=== PATIENT | male | born 1965 | race Caucasian/White ===

== ENCOUNTER 2020-12-24 08:08 | Observation (INO) | payer OTHER ==
[2020-12-24 09:32] LABS: Basophils % (A) 0 %; Eosinophils # (A) 0.1 k/uL (0-0.7); Eosinophils % (A) 1 %; HCT 47.5 % (39.0-53.0); HGB 16.4 gm/dL (13.0-17.5); Lymphocytes # (A) 1.4 k/uL (1.0-4.8); Lymphocytes % (A) 15 %; MCH 30.8 pg (25.0-35.0); MCHC 34.6 g/dL (31.0-37.0); MCV 89.1 fL (80.0-100.0); Mean Platelet Volume 7.2; Monocytes # (A) 0.6 k/uL (0-1.0); Monocytes % (A) 7 %; Neutrophils # (A) 6.8 k/uL (1.3-7.7); Neutrophils % (A) 75 %; Platelet Count 284 k/uL (150-450); RBC 5.33 m/uL (4.30-5.90); RDW 13.4 % (11.5-15.5); WBC 9.1 k/uL (3.8-10.6)
[2020-12-24 09:56] LABS: ALT 31 U/L (4-49); AST 28 U/L (17-59); African American GFR (CKD) >90 (>60 ml/min/1.73 sqM); Albumin 4.2 g/dL (3.5-5.0); Alkaline Phosphatase 87 U/L (38-126); Anion Gap 8 mmol/L; Blood Urea Nitrogen 15 mg/dL (9-20); Calcium 9.8 mg/dL (8.4-10.2); Carbon Dioxide 24 mmol/L (22-30); Chloride 105 mmol/L (98-107); Glucose 82 mg/dL (74-99); Non-African American GFR(CKD) >90 (>60 ml/min/1.73 sqM); Potassium 4.1 mmol/L (3.5-5.1); Sodium 137 mmol/L (137-145); Total Bilirubin 0.7 mg/dL (0.2-1.3); Total Protein 6.6 g/dL (6.3-8.2)
--- NOTE | 2020-12-24 10:22 | ED ---
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 Patient states after that his symptoms resolved almost entirely and then he got COVID about 4 months ago and his Guillain-almaguer are acting up again and he needed to be admitted a second time and at that point in time he did not know what they didn't hospital for while he was in the hospital. Patient states 3 weeks ago he started having similar symptoms to his previous Guillain-Almaguer and he had right-sided sensation change and he felt as though his fine motor skills were not as good as they were before. Patient states the symptoms have progressed over the last 3 weeks. Patient states he recently had an MRI of the brain however when we looked into it was an MRI of the C-spine. Patient is convinced bpm almaguer is coming back and he came to the hospital today. Patient states she's had no new symptoms in the last 24 hours noted the same symptoms he has had for the last 3 weeks but they're slowly progressing. Patient denies fever chills. Patient denies chest pain difficulty breathing. Patient denies any palpitations. Patient denies abdominal pain patient is not vomiting diarrhea. - Related Data Home Medications Medication Instructions Recorded Confirmed Ascorbic Acid [Vitamin C] 1,000 mg PO DAILY 12/24/20 12/24/20 Cholecalciferol [Vitamin D3 (25 25 mcg PO DAILY 12/24/20 12/24/20 Mcg = 1000 Iu)] SUMAtriptan succinate [Sumatriptan 100 mg PO DAILY PRN 12/24/20 12/24/20 Succinate] Triamcinolone 0.5% Cream [Kenalog 1 applic TOPICAL BID 12/24/20 12/24/20 0.5% Cream] Zinc 50 mg PO DAILY 12/24/20 12/24/20 hydrOXYzine HCL [Atarax] 25 mg PO HS 12/24/20 12/24/20 predniSONE 10 mg PO HS 12/24/20 12/24/20 Allergies Allergy/AdvReac Type Severity Reaction Status Date / Time No Known Allergies Allergy Verified 12/24/20 10:08 Review of Systems ROS Statement: Those systems with pertinent positive or pertinent negative responses have been documented in the HPI. ROS Other: All systems not noted in ROS Statement are negative. Past Medical History Additional Past Medical History / Comment(s): fercho christianson History of Any Multi-Drug Resistant Organisms: None Reported Past Surgical History: No Surgical Hx Reported Past Psychological History: No Psychological Hx Reported Smoking Status: Never smoker Past Alcohol Use History: None Reported Past Drug Use History: None Reported General Exam - General Exam Comments Initial Comments: GENERAL: Patient is well-developed and well-nourished. Patient is nontoxic and well- hydrated and is in no acute distress. ENT: Neck is soft and supple. No significant lymphadenopathy is noted. Oropharynx is clear. Moist mucous membranes. Neck has full range of motion without eliciting any pain. EYES: The sclera were anicteric and conjunctiva were pink and moist. Extraocular movements were intact and pupils were equal round and reactive to light. Eyelids were unremarkable. PULMONARY: Unlabored respirations. Good breath sounds bilaterally. No audible rales rhonchi or wheezing was noted. CARDIOVASCULAR: There is a regular rate and rhythm without any murmurs gallops or rubs. ABDOMEN: Soft and nontender with normal bowel sounds. No palpable organomegaly was noted. There is no palpable pulsatile mass. SKIN: Skin is clear with no lesions or rashes and otherwise unremarkable. NEUROLOGIC: Patient is alert and oriented x3. Cranial nerves II through XII are grossly intact. Motor intact bilaterally Normal speech, volume and content. Symmetrical smile. Cerebellar exam grossly intact. I did not appreciate any weakness but the patient stated that his light touch sensation was significantly decreased his right hand compared to his left hand. Apply could not appreciate his fine motor skills loss he stated that his fine motor skills seemed to be off on his right hand. MUSCULOSKELETAL: Normal extremities with adequate strength and full range of motion. No lower extremity swelling or edema. No calf tenderness. LYMPHATICS: No significant lymphadenopathy is noted PSYCHIATRIC: Normal psychiatric evaluation. Limitations: no limitations Course Vital Signs 12/24/20 12/24/20 12/24/20 08:13 08:18 09:59 Temperature 98.1 F Pulse Rate 89 80 79 Respiratory 18 18 18 Rate Blood Pressure 129/93 120/86 118/90 O2 Sat by Pulse 96 96 96 Oximetry Medical Decision Making - Medical Decision Making I spoke with Dr. Mukherjee was in the emergency department he wanted to be put on stat consult so I did so. He also was comfortable admitting the patient even if he did have Guillain-Almaguer CT of the brain shows no acute abnormality. [facility] the patient wrote admitting orders I consult Dr. Ferrell - Lab Data Result diagrams: 12/24/20 09:20 12/24/20 09:20 Lab Results 12/24/20 12/24/20 Range/Units 09:20 09:20 WBC 9.1 (3.8-10.6) k/uL RBC 5.33 (4.30-5.90) m/uL Hgb 16.4 (13.0-17.5) gm/dL Hct 47.5 (39.0-53.0) % MCV 89.1 (80.0-100.0) fL MCH 30.8 (25.0-35.0) pg MCHC 34.6 (31.0-37.0) g/dL RDW 13.4 (11.5-15.5) % Plt Count 284 (150-450) k/uL MPV 7.2 Neutrophils % 75 % Lymphocytes % 15 % Monocytes % 7 % Eosinophils % 1 % Basophils % 0 % Neutrophils # 6.8 (1.3-7.7) k/uL Lymphocytes # 1.4 (1.0-4.8) k/uL Monocytes # 0.6 (0-1.0) k/uL Eosinophils # 0.1 (0-0.7) k/uL Basophils # 0.0 (0-0.2) k/uL Sodium 137 (137-145) mmol/L Potassium 4.1 (3.5-5.1) mmol/L Chloride 105 (98-107) mmol/L Carbon Dioxide 24 (22-30) mmol/L Anion Gap 8 mmol/L BUN 15 (9-20) mg/dL Creatinine 0.71 (0.66-1.25) mg/dL Est GFR (CKD-EPI)AfAm >90 (>60 ml/min/1.73 sqM) Est GFR (CKD-EPI)NonAf >90 (>60 ml/min/1.73 sqM) Glucose 82 (74-99) mg/dL Calcium 9.8 (8.4-10.2) mg/dL Total Bilirubin 0.7 (0.2-1.3) mg/dL AST 28 (17-59) U/L ALT 31 (4-49) U/L Alkaline Phosphatase 87 (38-126) U/L Total Protein 6.6 (6.3-8.2) g/dL Albumin 4.2 (3.5-5.0) g/dL Disposition Clinical Impression: Guillain-Kayenta syndrome, Right sided numbness Disposition: ADMITTED IP TO THIS HOSP Referrals: Georges Prince DO [Primary Care Provider] - 1-2 days Time of Disposition: 11:06
--- NOTE | 2020-12-24 10:35 | CT ---
EXAMINATION TYPE: CT brain wo con DATE OF EXAM: 12/24/2020 HISTORY: generalized body numbness and weakness, history of Guillain barre. Neuro deficit per order. CT DLP: 1099.4 mGycm. Automated Exposure Control for Dose Reduction was Utilized. TECHNIQUE: CT scan of the head is performed without contrast. COMPARISON: None. FINDINGS: There is no acute intracranial hemorrhage or midline shift identified. Ventricles and sul ci within normal limits in size for patient's age. Cardenas-white matter differentiation is maintained. T he globes are minimally imaged. The visualized sinuses are clear. IMPRESSION: No acute intracranial hemorrhage or midline shift.
[2020-12-24] MEDS ORDERED: ASPIRIN 325 MG TAB PO STA (11:07)
--- NOTE | 2020-12-24 12:37 | P.CNNES ---
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 He is accompanied with his . She stated that he contracted the poison IV and his the lower extremities about 3 weeks ago and since then he's been having a generalized numbness but notices it more of from just the proximal to the ankles and down as well as the right hand. He also feels he is having fine motor movement difficulty over the right hand. He feel very occasions he has word finding difficulties but currently doing ok. Denies diplopia. He denies of difficulty swallowing or headaches. He denies of any Gastrointestinal or respiratory symptoms prior to this current the episode. He is not on any medication regarding his polyneuropathy (such as IVIG outpatient or any other medications). According to patient he has history of Guillain-Neville syndrome and that was in [place] 2019 and which she had the right sided weakness he had his eyes was closing up on him difficulty getting his words out and he was having diplopia. Patient had the lumbar puncture and the was notified it was normal but he was notified was performed the early.He had to be intubated. He was notified that his condition was GBS. Patient received IVIG for 5 days. as a result but upon discharged at patient felt better. About 4 months ago the patient had [place] 19 pneumonia and had similar presentation in which she had right-sided weakness and diplopia eyes eyes closed. He went to [facility] and he he had Plasma exchange for 2 days then IVIG for 5 days and felt 95% better. He did not get Lumbar Puncture at [place]. She had EMG with nerve conduction study at his neurologist (Dr. Camacho) and per patient was notified he had bilateral carpal tunnel syndrome (right > left). He has not seen his neurologist in about 6 month. Patient has recent MRI Cervical spine at end of November as outpatient. Some other workup in the hospital consisted of: Initial vital signs: Blood pressure 129/93, heart rate of 89, respiratory of 18, temperature of 98.1 Fahrenheit and the pulse ox of 96% room air. CT of the head is reported as no acute intracranial hemorrhage or midline shift. CBC with differential is unremarkable. Chemistry panel was also unremarkable. Review of Systems Review of system: The 12 point system was reviewed and apparent positive and negative per HPI. Past Medical History Additional Past Medical History / Comment(s): fercho christianson History of Any Multi-Drug Resistant Organisms: None Reported Past Surgical History: No Surgical Hx Reported Past Psychological History: No Psychological Hx Reported Smoking Status: Never smoker Past Alcohol Use History: None Reported Past Drug Use History: None Reported Medications and Allergies Home Medications Medication Instructions Recorded Confirmed Type Ascorbic Acid [Vitamin C] 1,000 mg PO DAILY 12/24/20 12/24/20 History Cholecalciferol [Vitamin D3 (25 25 mcg PO DAILY 12/24/20 12/24/20 History Mcg = 1000 Iu)] SUMAtriptan succinate [Sumatriptan 100 mg PO DAILY PRN 12/24/20 12/24/20 History Succinate] Triamcinolone 0.5% Cream [Kenalog 1 applic TOPICAL BID 12/24/20 12/24/20 History 0.5% Cream] Zinc 50 mg PO DAILY 12/24/20 12/24/20 History hydrOXYzine HCL [Atarax] 25 mg PO HS 12/24/20 12/24/20 History predniSONE 10 mg PO HS 12/24/20 12/24/20 History Allergies Allergy/AdvReac Type Severity Reaction Status Date / Time No Known Allergies Allergy Verified 12/24/20 10:08 Physical Examination - Vital Signs Vital Signs: Vital Signs Temp Pulse Resp BP Pulse Ox 12/24/20 09:59 79 18 118/90 96 12/24/20 08:18 80 18 120/86 96 12/24/20 08:13 98.1 F 89 18 129/93 96 Intake and Output 12/23/20 12/24/20 12/24/20 22:59 06:59 14:59 Other: Weight 73.482 kg GENERAL: The patient is lying in bed and is not in acute distress. CHEST: The heart rate is regular rate rhythm. No murmurs to auscultation. No carotid bruit bilaterally. LUNG: Clear to auscultation bilaterally no wheezing noted throughout. Not labored breathing. ABDOMEN/GI: Bowel sounds present in all 4 quadrants. No tenderness to palpation throughout. NEUROLOGICAL: Higher mental function: The patient is awake, alert, oriented to self, place and time. Patient is following commands. No aphasia and no neglect. Cranial nerves: The pupils are round, equal and reactive to light and accommodation. Visual pinedo are full to confrontation throughout. Extraocular movement is intact no nystagmus is noted. Facial sensation is normal to touch throughout. The facial strength is normal throughout. Hearing is normal bilaterally to hand rub. Tongue is midline and moved [id number] without any difficulty. No dysarthria is noted. Shoulder shrug is normal bilaterally. Motor: Gait seems unsteady but is not swaying towards one side or the other (he does not need any assistance to help him walk). The strength is right hand merchandising representative is 4+ to 5. Otherwise 5/5 throughout. Normal tone and bulk. Cerebellum: Normal finger to nose heel to kent bilaterally. Sensation: Sensation is decrease to touch from distal calf/proximal ankles all way down to tip of toes bilaterally. While to pinprick has decrease from midca lf all way down bilaterally. In uppers normal to touch but to pinprick was inconsistent. Has absent vibration on bilateral large toes, ankles and diminished on bilateral knee. Reflexes (right/left): Brachioradialis is 1+ over brachioradialis 2+, 1+ right triceps otherwise absent throughout (patient stated it has been affected since 2019). Plantars are mute bilaterally. Results - Laboratory Findings CBC and BMP: 12/24/20 09:20 12/24/20 09:20 Assessment and Plan Assessment: * Paresthesia throughout body especially over the right hand and bilateral ankles for past 3 weeks and having complaining of fine motor movement over the right hand. 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 * COVID 19 pneumonia 4 months ago * Poison IV for past 3 weeks * Bilateral carpal tunnel syndrome Plan: Patient opted out of getting Lumbar puncture. Therefore will start the patient on IVIG 2g/kg over 5 days (spoke with inpatient pharmacist and they will check if they have it supply and place the order of IVIG). Ordered MRI of the brain. Ordered vitamin B12, B6 level, folate, TSH level and HbA1c. From neurological stand point this is not a stroke and he does not need to be on ASA or antiplatelets. PT, OT and VIRTUAL RECRUITER are consulted. Placed on cardiac monitoring. Regarding his cervical spondylosis over C3-C4 in which was revealed on recent MRI at end of 11/2020: And wants to avoid any surgical intervention at this time and will follow-up as outpatient. Will defer the rest of medical management to the primary team. Patient was notified that he needs to follow-up with his neurologist as outpatient upon discharge to get further evaluation for his neuropathy as well consideration of schedule treatment for his CIDP to avoid as much possible relapses. The plan is discussed with the patient and his . Thank you for the consultation. Vikram Ferrell MD Neuro-Hospitalist. Time with Patient: Greater than 30
[2020-12-24] MEDS ORDERED: IMMUNE GLOBULIN (GAMMAGARD) 30 GM in EMPTY BAG 1 BAG IV ONE (15:00)
--- NOTE | 2020-12-24 15:12 | MR ---
EXAMINATION TYPE: MR brain wo/w con DATE OF EXAM: 12/24/2020 COMPARISON: CT brain from earlier today HISTORY: Right hand weakness/numbness, speech difficulty. TECHNIQUE: Multiplanar, multisequence images of the brain and brainstem is performed without and with IV contras t, utilizing 7.5 mL intravenous Gadavist . FINDINGS: Diffusion weighted images demonstrate no evidence of a recent infarct or other diffusion ab normality. There is no extra-axial fluid collection or significant white matter signal abnormality. The ventricular system and cisternal spaces are normal in size and appearance. The brain volume is age appropriate. Midline structures demonstrate normal morphology. The craniocervical junction appears within normal limits. Post contrast images demonstrate no abnormal enhancement. Incidental dominant right vertebra l artery. The dural venous sinuses appear patent. The visualized sinuses are clear and the globes are intact. IMPRESSION: No MRI evidence for recent infarct. Fairly unremarkable study.
[2020-12-24] MEDS ORDERED: PROCHLORPERAZINE INJ 10 MG/2 ML VIAL IVP STA (16:01)
[2020-12-24] MEDS ORDERED: KETOROLAC 15 MG/ML 1 ML VIAL IVP STA (16:02)
[2020-12-24] MEDS ORDERED: diphenhydrAMINE 50 MG/ML 1 ML VIAL IVP PRN (16:02)
[2020-12-24] MEDS: ACETAMINOPHEN TAB 325 MG TAB PO PRN (23:03)
--- NOTE | 2020-12-25 00:08 | P.HPIM ---
History of Present Illness H&P Date: 12/24/20 Chief Complaint: Numbness and tingling Patient is a 55-year-old male with a known history of Guillain-Neville syndrome was initially treated and 2020, patient also had labs when he had COVID-19 pneumonia about 4 months ago status post IV immunoglobulin therapy presents to ER with complaints of bilateral upper and lower extremity tingling and numbness. Patient states that he has been having symptoms for the past 3 weeks. Right side more prominent than left side. Patient is right-handed. Patient also states that she contracted poison reza on his lower extremities about 3 weeks ago and since then he has been having numbness and tingling sensation. Otherwise denies any complaints of headache or dizziness or lightheadedness. No fever no chills. Denies any weakness but difficulty hold onto objects with his right hand since the patient is unable to sense. Patient is also complaining occasional difficulty in finding words. Denied any double vision. Denied any swallowing difficulty. No nausea vomiting or abdominal pain or diarrhea. No dysuria or hematuria. Patient had prior history of lumbar puncture when initially diagnosed with Gilbert syndrome. CT head in the ER showed no acute intracranial process or midline shift. Laboratory showed WBC 9.1 hemoglobin 16.4 and platelets 284 Sodium 137 potassium 4.1 BUN 15 creatinine 0.71 liver enzymes are not elevated and TSH level is 1.920 Review of Systems Constitutional: Patient denies any fever or chills . No generalized weakness or weight loss. Abdomen: Patient denied nausea vomiting and diarrhea and abdominal pain. Cardiovascular: Patient denies any chest pain or short of breath no palpitations. Respiratory: patient denied any cough or sputum production. No shortness of breath Neurologic: Patient does have numbness or tingling Of the bilateral upper and lower extremities.. Musculoskeletal: Patient denies any complaints of joint swelling or deformity. Skin: Negative Psychiatric: Negative Endocrine: No heat or cold intolerance. No recent weight gain. Genitourinary: No dysuria or hematuria. All other 14 point ROS negative except the above Past Medical History Additional Past Medical History / Comment(s): guillian biarre History of Any Multi-Drug Resistant Organisms: None Reported Past Surgical History: No Surgical Hx Reported Additional Past Anesthesia/Blood Transfusion Reaction / Comment(s): has never had anesthesia Smoking Status: Never smoker - Past Family History Father Family Medical History: No Reported History Mother Family Medical History: No Reported History Medications and Allergies Home Medications Medication Instructions Recorded Confirmed Type Ascorbic Acid [Vitamin C] 1,000 mg PO DAILY 12/24/20 12/24/20 History Cholecalciferol [Vitamin D3 (25 25 mcg PO DAILY 12/24/20 12/24/20 History Mcg = 1000 Iu)] SUMAtriptan succinate [Sumatriptan 100 mg PO DAILY PRN 12/24/20 12/24/20 History Succinate] Triamcinolone 0.5% Cream [Kenalog 1 applic TOPICAL BID 12/24/20 12/24/20 History 0.5% Cream] Zinc 50 mg PO DAILY 12/24/20 12/24/20 History hydrOXYzine HCL [Atarax] 25 mg PO HS 12/24/20 12/24/20 History predniSONE 10 mg PO HS 12/24/20 12/24/20 History Allergies Allergy/AdvReac Type Severity Reaction Status Date / Time No Known Allergies Allergy Verified 12/24/20 10:08 Physical Exam Vitals: Vital Signs Temp Pulse Pulse Resp BP BP Pulse Ox 12/24/20 19:51 98 F 76 16 114/79 12/24/20 15:17 97.9 F 73 18 122/81 98 12/24/20 14:40 90 18 121/88 98 12/24/20 09:59 79 18 118/90 96 12/24/20 08:18 80 18 120/86 96 12/24/20 08:13 98.1 F 89 18 129/93 96 Intake and Output 12/24/20 12/24/20 12/24/20 06:59 14:59 22:59 Intake Total 486.083 Balance 486.083 Intake: Intake, IV Titration 486.083 Amount Immune Globulin ( 186.083 Gammagard) 30 gm In Empty Bag 1 bag @ Per Protocol IV .Q0M ONE Rx#: [id number] Immune Globulin ( 300 Gammagard) 30 gm In Empty Bag 1 bag @ Per Protocol IV .Q0M ONE Rx#: [id number] Other: Weight 73.482 kg 73.482 kg PHYSICAL EXAMINATION: Patient is lying in the bed comfortably, no acute distress, awake alert and oriented.. HEENT: Normocephalic. Neck is supple. Pupils reactive. Nostrils clear. Oral cavity is moist. Neck reveals no JVD, carotid bruits, or thyromegaly. CHEST EXAMINATION: Trachea is central. Symmetrical expansion. Lung pinedo clear to auscultation and percussion. CARDIAC: Normal S1, S2 with no gallops. No murmurs ABDOMEN: Soft. Bowel sounds normal. No organomegaly. No abdominal bruits. Extremities: reveal no edema. No clubbing or cyanosis Neurologically awake, alert, oriented x3 with well-coordinated movements. Numbness of right hand and fingers Skin: No rash or skin lesions. Psychiatric: Coperative. Nonsuicidal Musculoskeletal: No joint swelling or deformity. Normal range of motion. Results CBC & Chem 7: 12/24/20 09:20 12/24/20 09:20 Thrombosis Risk Factor Assmnt - Choose All That Apply Any of the Below Risk Factors Present?: Yes Each Factor Represents 1 point: Age 41-60 years Other Risk Factors: No Other congenital or acquired thrombophilia - If yes, enter type in comment: No Thrombosis Risk Factor Assessment Total Risk Factor Score: 1 Thrombosis Risk Factor Assessment Level: Low Risk Assessment and Plan Assessment: Numbness and tingling sensation of the right upper and lower extremities more than left side. 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 COVID-19 pneumonia about 4 months ago Bilateral carpal tunnel syndrome Poison reza contact about 3 weeks ago Plan: Patient was started on IV immunoglobulins for a total of 5 days. Neurology is on board. Stroke work-up including MRI of the brain was ordered. CT head is negative. PT OT and RABBLE FURNACE TENDER was consulted. Continue with neurochecks and telemetry monitoring. We will continue to follow closely. Time with Patient: Greater than 30
[2020-12-25] MEDS: ASPIRIN 325 MG TAB PO SCH (07:30)
[2020-12-25] MEDS ORDERED: IMMUNE GLOBULIN (GAMMAGARD) 30 GM in EMPTY BAG 1 BAG IV ONE (12:00)
[2020-12-25] MEDS ORDERED: KETOROLAC 15 MG/ML 1 ML VIAL IVP STA (13:16)
[2020-12-25] MEDS ORDERED: diphenhydrAMINE 50 MG/ML 1 ML VIAL IVP STA (13:17)
[2020-12-25] MEDS ORDERED: PROCHLORPERAZINE INJ 10 MG/2 ML VIAL IVP STA (13:17)
--- NOTE | 2020-12-25 14:31 | P.PN ---
Subjective Progress Note Date: 12/25/20 The patient is seen at bedside and he said he feels about the same today compared to yesterday. He denies any worsening of his symptoms. He received his first IVIG yesterday and today is day #2. Objective - Vital Signs Vital signs: Vital Signs Temp 97.8 F 12/25/20 12:06 Pulse 69 12/25/20 12:06 Resp 18 12/25/20 12:06 BP 126/81 12/25/20 12:06 Pulse Ox 98 12/25/20 12:06 Intake & Output 12/24/20 12/25/20 12/25/20 18:59 06:59 18:59 Intake Total 486.083 200 8.75 Balance 486.083 200 8.75 Weight 73.482 kg Intake: Intake, IV Titration 486.083 8.75 Amount Immune Globulin ( 186.083 Gammagard) 30 gm In Empty Bag 1 bag @ Per Protocol IV .Q0M ONE Rx#: [id number] Immune Globulin ( 8.75 Gammagard) 30 gm In Empty Bag 1 bag @ Per Protocol IV .Q0M ONE Rx#: [id number] Immune Globulin ( 300 Gammagard) 30 gm In Empty Bag 1 bag @ Per Protocol IV .Q0M ONE Rx#: [id number] Oral 200 Other: Voiding Method Toilet - Exam GENERAL: The patient is lying in bed and is not in acute distress. NEUROLOGICAL: Higher mental function: The patient is awake, alert, oriented to self, place and time. Patient is following commands. No aphasia and no neglect. Cranial nerves: The pupils are round, equal and reactive to light and accommodation. Visual pinedo are full to confrontation throughout. Extraocular movement is intact no nystagmus is noted. Facial sensation is normal to touch throughout. The facial strength is normal throughout. Hearing is normal bilaterally to hand rub. Tongue is midline and moved [id number] without any difficulty. No dysarthria is noted. Shoulder shrug is normal bilaterally. Motor: Gait seems unsteady but is not swaying towards one side or the other (he does not need any assistance to help him walk). The strength is right hand mutuel clerk is 4+ to 5. Has difficulty with fine hand movement of the right. Otherwise 5/5 throughout. Normal tone and bulk. Cerebellum: Normal finger to nose heel to kent bilaterally. Sensation: Sensation is decrease to touch from distal calf/proximal ankles all way down to tip of toes bilaterally. While to pinprick has decrease from midca lf all way down bilaterally. In uppers normal to touch but to pinprick was inconsistent. Has absent vibration on bilateral large toes, ankles and diminished on bilateral knee. Reflexes (right/left): Brachioradialis is 1+ over brachioradialis 2+, 1+ right triceps otherwise absent throughout (patient stated it has been affected since 2019). Plantars are mute bilaterally. UPDATE: MRI of the brain is reported as no evidence for recent infarct. A fairly unremarkable study. TSH is 1.920 which is within normal limits. Red blood cell folate 626 also within normal limits. - Labs CBC & Chem 7: 12/24/20 09:20 12/24/20 09:20 Assessment and Plan Assessment: * Paresthesia throughout body especially over the right hand and bilateral ankles for past 3 weeks and having complaining of fine motor movement over the right hand. 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 * Cervical spondylosis over C3-C4 in which was revealed on recent MRI at end of 11/2020 * COVID 19 pneumonia 4 months ago * Poison IV for past 3 weeks * Bilateral carpal tunnel syndrome Plan: Continue on IVIG 2g/kg over 5 days (today is day #2/5). vitamin B12, B6 level and HbA1c are pending. From neurological stand point this is not a stroke and he does not need to be on ASA or antiplatelets. PT, OT and AUTOMOTIVE UPHOLSTERER are consulted. On cardiac monitoring. Regarding his cervical spondylosis over C3-C4 in which was revealed on recent MRI at end of 11/2020: Want to evaluate as outpatient for further evaluation. Will defer the rest of medical management to the primary team. Patient was notified that he needs to follow-up with his neurologist as outpatient upon discharge to get further evaluation for his neuropathy as well consideration of scheduled treatment for his CIDP to avoid as much possible relapses. The plan is discussed with the patient. Vikram Ferrell MD Neuro-Hospitalist. Time with Patient: Less than 30
[2020-12-25 18:32] LABS: Folate, Serum 20.2 ng/mL
--- NOTE | 2020-12-25 23:26 | P.PN ---
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 Patient states that he has been having symptoms for the past 3 weeks. Right s mejia more prominent than left side. Patient is right-handed. Patient also states that she contracted poison reza on his lower extremities about 3 weeks ago and since then he has been having numbness and tingling sensation. Otherwise denies any complaints of headache or dizziness or lightheadedness. No fever no chills. Denies any weakness but difficulty hold onto objects with his right hand since the patient is unable to sense. Patient is also complaining occasional difficulty in finding words. Denied any double vision. Denied any swallowing difficulty. No nausea vomiting or abdominal pain or diarrhea. No dysuria or hematuria. Patient had prior history of lumbar puncture when initially diagnosed with Gilbert syndrome. CT head in the ER showed no acute intracranial process or midline shift. Laboratory showed WBC 9.1 hemoglobin 16.4 and platelets 284 Sodium 137 potassium 4.1 BUN 15 creatinine 0.71 liver enzymes are not elevated and TSH level is 1.920 12/25/2020 Patient is currently lying in the bed awake alert and oriented x3. Right upper extremity tingling sensation is better today. No dysarthria or trouble finding words. Patient has been afebrile. No headache or dizziness lightheadedness. Patient is tolerating oral diet. Continue immunoglobulins day 2 of 5. Neurology is on board. Current medications reviewed. Objective - Vital Signs Vital signs: Vital Signs Temp 98.4 F 12/25/20 20:28 Pulse 82 12/25/20 20:28 Resp 16 12/25/20 20:28 BP 115/78 12/25/20 20:28 Pulse Ox 96 12/25/20 20:28 Intake & Output 12/25/20 12/25/20 12/26/20 06:59 18:59 06:59 Intake Total 200 1878.75 Balance 200 1878.75 Intake: Intake, IV Titration 358.75 Amount Immune Globulin ( 8.75 Gammagard) 30 gm In Empty Bag 1 bag @ Per Protocol IV .Q0M ONE Rx#: [id number] Immune Globulin ( 350 Gammagard) 30 gm In Empty Bag 1 bag @ Per Protocol IV .Q0M ONE Rx#: [id number] Oral 200 1520 Other: Voiding Method Toilet # Voids 3 - Exam PHYSICAL EXAMINATION: Patient is lying in the bed comfortably, no acute distress, awake alert and oriented.. HEENT: Normocephalic. Neck is supple. Pupils reactive. Nostrils clear. Oral cavity is moist. Neck reveals no JVD, carotid bruits, or thyromegaly. CHEST EXAMINATION: Trachea is central. Symmetrical expansion. Lung pinedo clear to auscultation and percussion. CARDIAC: Normal S1, S2 with no gallops. No murmurs ABDOMEN: Soft. Bowel sounds normal. No organomegaly. No abdominal bruits. Extremities: reveal no edema. No clubbing or cyanosis Neurologically awake, alert, oriented x3 with well-coordinated movements. Numbness of right hand and fingers Skin: No rash or skin lesions. Psychiatric: Coperative. Nonsuicidal Musculoskeletal: No joint swelling or deformity. Normal range of motion. - Labs CBC & Chem 7: 12/24/20 09:20 12/24/20 09:20 Assessment and Plan Assessment: Numbness and tingling sensation of the right upper and lower extremities more than left side. 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 COVID-19 pneumonia about 4 months ago Bilateral carpal tunnel syndrome Poison reza contact about 3 weeks ago Plan: Patient was started on IV immunoglobulins for a total of 2/5 days. Neurology is on board. Stroke work-up including MRI of the brain was ordered. CT head is negative. MRI of the brain showed no evidence of recent infarct. PT OT and BLEACH LIQUOR MAKER has seenthe pt. . Patient is tolerating oral diet. Continue with neurochecks and telemetry monitoring. We will continue to follow closely.
[2020-12-26] MEDS: ACETAMINOPHEN TAB 325 MG TAB PO PRN ×2 (00:09→04:20)
[2020-12-26 02:10] LABS: Chol/HDL Ratio 3.05; LDL Cholesterol,Calculated 92.4 mg/dL (0.0-131.0); VLDL Calculation 20.6 mg/dL (5.00-40.00)
[2020-12-26] MEDS: HYDROcodone/APAP 5-325MG 1 EACH TAB PO PRN ×2 (08:19→23:32)
[2020-12-26] MEDS: ASPIRIN 325 MG TAB PO SCH (08:19)
[2020-12-26] MEDS ORDERED: PROCHLORPERAZINE INJ 10 MG/2 ML VIAL IVP STA (09:29)
[2020-12-26] MEDS ORDERED: diphenhydrAMINE 50 MG/ML 1 ML VIAL IVP STA (09:30)
[2020-12-26] MEDS ORDERED: KETOROLAC 15 MG/ML 1 ML VIAL IVP STA (09:30)
--- NOTE | 2020-12-26 09:35 | P.PN ---
Subjective Progress Note Date: 12/26/20 Upon seeing the patient he stated that he feels that he is doing better today compared to his initial presentation. He feels he has better motor movements over the right as well as he feels the sensation in the ankles are improving. He denies of any new neurological deficit. He says with this IVIG gets headache and he's been having headaches. Today is day 3 for IVIG Objective - Vital Signs Vital signs: Vital Signs Temp 98.4 F 12/26/20 04:57 Pulse 78 12/26/20 08:00 Resp 16 12/26/20 08:00 BP 112/78 12/26/20 04:57 Pulse Ox 94 L 12/26/20 04:57 Intake & Output 12/25/20 12/26/20 12/26/20 18:59 06:59 18:59 Intake Total 1878.75 1180 Balance 1878.75 1180 Intake: Intake, IV Titration 358.75 Amount Immune Globulin ( 8.75 Gammagard) 30 gm In Empty Bag 1 bag @ Per Protocol IV .Q0M ONE Rx#: [id number] Immune Globulin ( 350 Gammagard) 30 gm In Empty Bag 1 bag @ Per Protocol IV .Q0M ONE Rx#: [id number] Oral 1520 1180 Other: Voiding Method Toilet Toilet # Voids 3 2 - Exam GENERAL: The patient is lying in bed and is not in acute distress. NEUROLOGICAL: Higher mental function: The patient is awake, alert, oriented to self, place and time. Patient is following commands. No aphasia and no neglect. Cranial nerves: The pupils are round, equal and reactive to light and accommodation. Visual pinedo are full to confrontation throughout. Extraocular movement is intact no nystagmus is noted. Facial sensation is normal to touch throughout. The facial strength is normal throughout. Hearing is normal bilaterally to hand rub. Tongue is midline and moved [id number] without any difficulty. No dysarthria is noted. Shoulder shrug is normal bilaterally. Motor: Gait seems unsteady but is not swaying towards one side or the other (he does not need any assistance to help him walk). The strength is right hand it operations specialist is 4+ to 5. Has difficulty with fine hand movement of the right. Otherwise 5/5 throughout. Normal tone and bulk. Cerebellum: Normal finger to nose heel to kent bilaterally. Sensation: Sensation is decrease to touch from distal calf/proximal ankles all way down to tip of toes bilaterally. While to pinprick has decrease from midcalf all way down bilaterally. In uppers normal to touch but to pinprick was inconsistent. Has absent vibration on bilateral large toes, ankles and diminished on bilateral knee. Reflexes (right/left): Brachioradialis is 1+ over brachioradialis 2+, 1+ right triceps otherwise absent throughout (patient stated it has been affected since 2019). Plantars are mute bilaterally. UPDATE: MRI of the brain is reported as no evidence for recent infarct. A fairly u nremarkable study. TSH is 1.920 which is within normal limits. Red blood cell folate 626 also within normal limits. Serum folate is 20.2 which is also within normal limits. Vitamin B12 is 466 which is considered within normal limits. Hemoglobin A1c at 5.0 which is within normal limits. - Labs CBC & Chem 7: 12/24/20 09:20 12/24/20 09:20 Assessment and Plan Assessment: * Paresthesia throughout body especially over the right hand and bilateral ankles for past 3 weeks and having complaining of fine motor movement over the right hand. 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 * Cervical spondylosis over C3-C4 in which was revealed on recent MRI at end of 11/2020 * COVID 19 pneumonia 4 months ago * Poison IV for past 3 weeks * Bilateral carpal tunnel syndrome Plan: Continue on IVIG 2g/kg over 5 days (today is day #3/5). Pending Vitamin B6 level. From neurological stand point this is not a stroke and he does not need to be on ASA or antiplatelets. PT, OT and PERSONAL CARE WORKER are consulted. On cardiac monitoring. I gave patient a migraine consult Compazine, Toradol and Benadryl 1 time dose for the headache. Regarding his cervical spondylosis over C3-C4 in which was revealed on recent MRI at end of 11/2020: Want to evaluate as outpatient for further evaluation. Will defer the rest of medical management to the primary team. Patient was notified that he needs to follow-up with his neurologist as outpatient upon discharge to get further evaluation for his neuropathy as well consideration of scheduled treatment for his CIDP to avoid as much possible relapses. The plan is discussed with the patient and his nurse. Vikram Ferrell MD Neuro-Hospitalist. Time with Patient: Less than 30
[2020-12-26] MEDS ORDERED: IMMUNE GLOBULIN (GAMMAGARD) 30 GM in EMPTY BAG 1 BAG IV ONE (12:00)
[2020-12-26] MEDS ORDERED: KETOROLAC 15 MG/ML 1 ML VIAL IVP SCH (12:00)
[2020-12-26] MEDS ORDERED: diphenhydrAMINE 50 MG/ML 1 ML VIAL IVP SCH (12:00)
--- NOTE | 2020-12-26 23:44 | P.PN ---
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 Patient states that he has been having symptoms for the past 3 weeks. Right s mejia more prominent than left side. Patient is right-handed. Patient also states that she contracted poison reza on his lower extremities about 3 weeks ago and since then he has been having numbness and tingling sensation. Otherwise denies any complaints of headache or dizziness or lightheadedness. No fever no chills. Denies any weakness but difficulty hold onto objects with his right hand since the patient is unable to sense. Patient is also complaining occasional difficulty in finding words. Denied any double vision. Denied any swallowing difficulty. No nausea vomiting or abdominal pain or diarrhea. No dysuria or hematuria. Patient had prior history of lumbar puncture when initially diagnosed with Gilbert syndrome. CT head in the ER showed no acute intracranial process or midline shift. Laboratory showed WBC 9.1 hemoglobin 16.4 and platelets 284 Sodium 137 potassium 4.1 BUN 15 creatinine 0.71 liver enzymes are not elevated and TSH level is 1.920 12/25/2020 Patient is currently lying in the bed awake alert and oriented x3. Right upper extremity tingling sensation is better today. No dysarthria or trouble finding words. Patient has been afebrile. No headache or dizziness lightheadedness. Patient is tolerating oral diet. Continue immunoglobulins day 2 of 5. 12/26/2020 Patient is currently resting in the bed comfortably. Bilateral upper extremity tingling sensation is much improved. No complaints of chest pain or shortness of. Patient did complain of headache and with improvement with [place] 5. Awake alert oriented x3. No complaints of dysarthria. No fever no chills. Patient is being current IV immunoglobulins Day 3 of . Neurology is on board. Current medications reviewed. Objective - Vital Signs Vital signs: Vital Signs Temp 99.1 F 12/26/20 20:51 Pulse 89 12/26/20 20:51 Resp 16 12/26/20 20:51 BP 117/78 12/26/20 20:51 Pulse Ox 95 12/26/20 20:51 Intake & Output 12/26/20 12/26/20 12/27/20 06:59 18:59 06:59 Intake Total 1180 634.433 Balance 1180 634.433 Intake: Intake, IV Titration 134.433 Amount Immune Globulin ( 134.433 Gammagard) 30 gm In Empty Bag 1 bag @ Per Protocol IV .Q0M ONE Rx#: [id number] Oral 1180 500 Other: Voiding Method Toilet # Voids 2 - Exam PHYSICAL EXAMINATION: Patient is lying in the bed comfortably, no acute distress, awake alert and oriented.. HEENT: Normocephalic. Neck is supple. Pupils reactive. Nostrils clear. Oral cavity is moist. Neck reveals no JVD, carotid bruits, or thyromegaly. CHEST EXAMINATION: Trachea is central. Symmetrical expansion. Lung pinedo clear to auscultation and percussion. CARDIAC: Normal S1, S2 with no gallops. No murmurs ABDOMEN: Soft. Bowel sounds normal. No organomegaly. No abdominal bruits. Extremities: reveal no edema. No clubbing or cyanosis Neurologically awake, alert, oriented x3 with well-coordinated movements. Numbness of right hand and fingers Skin: No rash or skin lesions. Psychiatric: Coperative. Nonsuicidal Musculoskeletal: No joint swelling or deformity. Normal range of motion. - Labs CBC & Chem 7: 12/24/20 09:20 12/24/20 09:20 Assessment and Plan Assessment: Numbness and tingling sensation of the right upper and lower extremities more than left side. 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 COVID-19 pneumonia about 4 months ago Bilateral carpal tunnel syndrome Poison reza contact about 3 weeks ago Plan: Patient was started on IV immunoglobulins for a total of 3/5 days. Neurology is on board. Stroke work-up including MRI of the brain was ordered. CT head is negative. MRI of the brain showed no evidence of recent infarct. PT OT and BOX LOADER has seenthe pt. . Patient is tolerating oral diet. Continue with neurochecks and telemetry monitoring. We will continue to follow closely.
[2020-12-27] MEDS: HYDROcodone/APAP 5-325MG 1 EACH TAB PO PRN (04:58)
[2020-12-27] MEDS: ASPIRIN 325 MG TAB PO SCH (08:41)
[2020-12-27] MEDS ORDERED: IMMUNE GLOBULIN (GAMMAGARD) 30 GM in EMPTY BAG 1 BAG IV ONE (12:00)
[2020-12-27] MEDS ORDERED: PROCHLORPERAZINE INJ 10 MG/2 ML VIAL IVP SCH (12:00)
--- NOTE | 2020-12-27 12:00 | P.PN ---
Subjective Progress Note Date: 12/27/20 Patient seen at bedside and per the patient he feels at his paresthesia is somewhat getting better on his ankles and he feels that his fine the motor movement is also somewhat getting better. He denies of any neurological deficits. He does have a headache over the left frontal region and feels pounding, 6/10. Had the nausea and vomiting. He says that usually gets headache with the getting IVIG in the past which are similar and not worse. Today's day 4 out of 5 for IVIG. Objective - Vital Signs Vital signs: Vital Signs Temp 98.4 F 12/27/20 05:00 Pulse 82 12/27/20 08:00 Resp 16 12/27/20 08:00 BP 121/76 12/27/20 05:00 Pulse Ox 97 12/27/20 07:42 Intake & Output 12/26/20 12/27/20 12/27/20 18:59 06:59 18:59 Intake Total 557.328 5535 Balance 725.575 6995 Intake: Intake, IV Titration 134.433 Amount Immune Globulin ( 134.433 Gammagard) 30 gm In Empty Bag 1 bag @ Per Protocol IV .Q0M ONE Rx#: [id number] Oral 500 1310 Other: Voiding Method Toilet Toilet Toilet # Voids 2 - Exam GENERAL: The patient is lying in bed and is not in acute distress. NEUROLOGICAL: Higher mental function: The patient is awake, alert, oriented to self, place and time. Patient is following commands. No aphasia and no neglect. Cranial nerves: The pupils are round, equal and reactive to light and accommodation. Visual pinedo are full to confrontation throughout. Extraocular movement is intact no nystagmus is noted. Facial sensation is normal to touch throughout. The facial strength is normal throughout. Hearing is normal bilaterally to hand rub. Tongue is midline and moved [id number] without any difficulty. No dysarthria is noted. Shoulder shrug is normal bilaterally. Motor: Gait seems unsteady but is not swaying towards one side or the other (he does not need any assistance to help him walk). The strength is right hand fundraising coordinator is 4+ to 5. Has difficulty with fine hand movement of the right. Otherwise 5/5 throughout. Normal tone and bulk. Cerebellum: Normal finger to nose heel to kent bilaterally. Sensation: Sensation is decrease to touch from distal calf/proximal ankles all way down to tip of toes bilaterally. While to pinprick has decrease from midcal f all way down bilaterally. In uppers normal to touch but to pinprick was inconsistent. Has absent vibration on bilateral large toes, ankles and diminished on bilateral knee. Reflexes (right/left): Brachioradialis is 1+ over brachioradialis 2+, 1+ right triceps otherwise absent throughout (patient stated it has been affected since 2019). Plantars are mute bilaterally. OUTSIDE WORK-UP: He had MRI of Cervical spine on 12/22/2020 ([facility]): It is reported as scattered disc degeneration with a more significant moderate posterior disc osteophyte complex at C3-C4 along with some uncovertebral/facet hypertrophic arthroplasty contributing to moderate to severe neuronal foraminal stenosis left greater than the right.Uncovertebral/facet hypertrophic arthroplasty multiple level contributing to a few other areas of neuroforaminal stenosis, up to moderate on the left at C4-C5. No other significant spinal canal stenosis. Normal cervical vertebral body height and alignment. WORK-UP: MRI of the brain is reported as no evidence for recent infarct. A fairly unr emarkable study. TSH is 1.920 which is within normal limits. Red blood cell folate 626 also within normal limits. Serum folate is 20.2 which is also within normal limits. Vitamin B12 is 466 which is considered within normal limits. Hemoglobin A1c at 5.0 which is within normal limits. - Labs CBC & Chem 7: 12/24/20 09:20 12/24/20 09:20 Assessment and Plan Assessment: * Paresthesia throughout body especially over the right hand and bilateral ankles for past 3 weeks and having complaining of fine motor movement over the right hand. 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 * Cervical spondylosis (greatest at C3-C4 that is moderate to severe (left) and moderate over C4-C5) * COVID 19 pneumonia 4 months ago * Poison IV for past 3 weeks * Bilateral carpal tunnel syndrome Plan: * Continue on IVIG 2g/kg over 5 days (today is day #4/5). * Pending Vitamin B6 level. * From neurological stand point this is not a stroke and he does not need to be on ASA or antiplatelets. I spoke with patient and he is in agreement of stopping it. * PT, OT and MANAGER STRATEGIC ALLIANCES are consulted. * On cardiac monitoring. * His migraine type headaches with IVIG: I gave the patient Compazine 5 mg every 12 hours as needed as well as Imitrex 50 mg twice a day when necessary. Discontinued [place]. * Regarding his cervical spondylosis greatest over C3-C4 in which was revealed on recent MRI at end of 11/2020: He wants it to be addressed as outpatient. Does not want Orthopedic consult as inpatient/No interested for any intervention at this time. * Gave patient a script to a neuromuscular specialist (he will [facility] call [facility] or [facility]). * Will defer the rest of medical management to the primary team. * Patient was notified that he needs to follow-up with his neurologist as outpatient upon discharge to get further evaluation for his neuropathy as well consideration of scheduled treatment for his CIDP to avoid as much possible relapses. The plan is discussed with the patient and his nurse. After tomorrow IVIG (last dose), he is clear from neurological perspective. Dr. Arrieta will provide neurology coverage starting tomorrow AM. Vikram Ferrell MD Neuro-Hospitalist. Time with Patient: Less than 30
[2020-12-27] MEDS: PROCHLORPERAZINE INJ 10 MG/2 ML VIAL IVP PRN (13:06)
[2020-12-27] MEDS: SUMAtriptan succinate 50 MG TAB PO PRN (13:06)
--- NOTE | 2020-12-28 00:26 | P.PN ---
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 Patient states that he has been having symptoms for the past 3 weeks. Right s mejia more prominent than left side. Patient is right-handed. Patient also states that she contracted poison reza on his lower extremities about 3 weeks ago and since then he has been having numbness and tingling sensation. Otherwise denies any complaints of headache or dizziness or lightheadedness. No fever no chills. Denies any weakness but difficulty hold onto objects with his right hand since the patient is unable to sense. Patient is also complaining occasional difficulty in finding words. Denied any double vision. Denied any swallowing difficulty. No nausea vomiting or abdominal pain or diarrhea. No dysuria or hematuria. Patient had prior history of lumbar puncture when initially diagnosed with Gilbert syndrome. CT head in the ER showed no acute intracranial process or midline shift. Laboratory showed WBC 9.1 hemoglobin 16.4 and platelets 284 Sodium 137 potassium 4.1 BUN 15 creatinine 0.71 liver enzymes are not elevated and TSH level is 1.920 12/25/2020 Patient is currently lying in the bed awake alert and oriented x3. Right upper extremity tingling sensation is better today. No dysarthria or trouble finding words. Patient has been afebrile. No headache or dizziness lightheadedness. Patient is tolerating oral diet. Continue immunoglobulins day 2 of 5. 12/26/2020 Patient is currently resting in the bed comfortably. Bilateral upper extremity tingling sensation is much improved. No complaints of chest pain or shortness of. Patient did complain of headache and with improvement with Hettinger 5. Awake alert oriented x3. No complaints of dysarthria. No fever no chills. Patient is being current IV immunoglobulins Day 3 of 5. Neurology is on board. 12/27/2020 Patient is currently lying in the bed comfortably. Awake alert 1x3. Bilateral upper extremity tingling sensation is much improved. Patient is getting day 4 out of 5 IV immunoglobulin. Denies any complaints of chest pain or shortness breath. No palpitations. Tolerating well. Neurology is on board. Current medications reviewed. Objective - Vital Signs Vital signs: Vital Signs Temp 98.1 F 12/27/20 12:45 Pulse 69 12/27/20 12:45 Resp 16 12/27/20 12:45 BP 117/77 12/27/20 12:45 Pulse Ox 96 12/27/20 12:45 Intake & Output 12/26/20 12/27/20 12/27/20 18:59 06:59 18:59 Intake Total 984.178 7761 546.667 Balance 514.398 3813 546.667 Intake: Intake, IV Titration 134.433 546.667 Amount Immune Globulin ( 134.433 Gammagard) 30 gm In Empty Bag 1 bag @ Per Protocol IV .Q0M ONE Rx#: [id number] Immune Globulin ( 246.667 Gammagard) 30 gm In Empty Bag 1 bag @ Per Protocol IV .Q0M ONE Rx#: [id number] Immune Globulin ( 300 Gammagard) 30 gm In Empty Bag 1 bag @ Per Protocol IV .Q0M ONE Rx#: [id number] Oral 500 1310 Other: Voiding Method Toilet Toilet Toilet # Voids 2 - Exam PHYSICAL EXAMINATION: Patient is lying in the bed comfortably, no acute distress, awake alert and oriented.. HEENT: Normocephalic. Neck is supple. Pupils reactive. Nostrils clear. Oral cavity is moist. Neck reveals no JVD, carotid bruits, or thyromegaly. CHEST EXAMINATION: Trachea is central. Symmetrical expansion. Lung pinedo clear to auscultation and percussion. CARDIAC: Normal S1, S2 with no gallops. No murmurs ABDOMEN: Soft. Bowel sounds normal. No organomegaly. No abdominal bruits. Extremities: reveal no edema. No clubbing or cyanosis Neurologically awake, alert, oriented x3 with well-coordinated movements. Numbness of right hand and fingers Skin: No rash or skin lesions. Psychiatric: Coperative. Nonsuicidal Musculoskeletal: No joint swelling or deformity. Normal range of motion. - Labs CBC & Chem 7: 12/24/20 09:20 12/24/20 09:20 Assessment and Plan Assessment: Numbness and tingling sensation of the right upper and lower extremities more than left side. 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 COVID-19 pneumonia about 4 months ago Bilateral carpal tunnel syndrome Poison reza contact about 3 weeks ago Plan: Patient was started on IV immunoglobulins for a total of 3/5 days. Neurology is on board. Stroke work-up including MRI of the brain was ordered. CT head is n egative. MRI of the brain showed no evidence of recent infarct. PT OT and [employer] has seenthe pt. . Patient is tolerating oral diet. Continue with neurochecks and telemetry monitoring. We will continue to follow closely.
[2020-12-28] MEDS: SUMAtriptan succinate 50 MG TAB PO PRN ×2 (00:30→09:14)
[2020-12-28] MEDS: PROCHLORPERAZINE INJ 10 MG/2 ML VIAL IVP PRN (09:14)
[2020-12-28] MEDS ORDERED: IMMUNE GLOBULIN (GAMMAGARD) 30 GM in EMPTY BAG 1 BAG IV ONE (12:00)
[2020-12-28 12:41] VITALS: BP 118/81; PULSE 78; RESP 17; TEMP 97.9
== END 2020-12-28 16:30 | disposition home or self-care (01) ==
LOC: EC 08:08 → 6NMEDSUR 11:14 → 5NMEDONC 13:49
PROVIDERS: ADMIT Hospitalist; ATTEND Hospitalist
DX: G61.81 Chronic inflammatory demyelinating polyneuritis (principal); G56.03 Carpal tunnel syndrome, bilateral upper limbs; G61.0 Guillain-Barre syndrome; H53.2 Diplopia; Z86.16 Personal history of COVID-19; M47.812 Spondylosis without myelopathy or radiculopathy, cervical region; Z87.01 Personal history of pneumonia (recurrent); L23.7 Allergic contact dermatitis due to plants, except food; R51.9 Headache, unspecified
CPT/HCPCS: 96376 ×4; 96365; 96366 ×4; 96375; 99285; 36415; 94760; 97162; 97165; 92523; 84207; 82747; 80061; 80053; 84443; 82607; 82746; 85025; 83036; 70450; 70553; G0378 ×6; J1200 ×3; J0780 ×5; J1569 ×5; J1885 ×3; A9585